=== PATIENT | female | born 1940 | race Caucasian/White ===

== ENCOUNTER → 2020-07-27 | Outpatient (CLI) | payer MEDICARE ==
[~2020-07-27] MED LIST: AMBIEN 5 MG TABL5 M1 PO; CIPROFLOXACIN500 M1 PO; LEVAQUIN 750 M750 MG PO; TESSALON PERLE100 MG PO
== END ==
LOC: CAT 09:57
PROVIDERS: ATTEND Internal Medicine
DX: J01.80 Other acute sinusitis (principal); R51.9 Headache, unspecified; R05 Cough

== ENCOUNTER → 2021-08-22 | Outpatient (CLI) | payer MEDICARE | LOC: SJCVC 13:08 | PROVIDERS: ATTEND Internal Medicine | DX: R94.31 Abnormal electrocardiogram [ECG] [EKG] (principal); I10 Essential (primary) hypertension; R00.1 Bradycardia, unspecified; Z79.899 Other long term (current) drug therapy; Z13.220 Encounter for screening for lipoid disorders; Z82.49 Family history of ischemic heart disease and other diseases of the circulatory system ==

== ENCOUNTER → 2021-09-09 | Outpatient (CLI) | payer MEDICARE | LOC: SJCVCIMAG 08:23 | PROVIDERS: ATTEND Internal Medicine | DX: I07.1 Rheumatic tricuspid insufficiency (principal); R00.1 Bradycardia, unspecified; R00.0 Tachycardia, unspecified ==